=== PATIENT | female | born 2005 | race Caucasian/White ===

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

== ENCOUNTER 2023-12-01 08:38 | Emergency (ER) | payer BC, SELFPAY ==
--- NOTE | ~2023-12-01 | XR_ITS ---
XR chest 1V portable Ordering provider: Dank Kapoor MD History: 18 years Female with . SOB, COUGH, CONGESTION , DX WITH BRONCHITIS YESTERDAY . Comparison: None. FINDINGS: MEDIASTINUM: The cardiac silhouette is not enlarged. LUNGS: No infiltrates, effusions or pneumothorax. OTHER: No free air under the diaphragm. IMPRESSION: No acute cardiopulmonary pathology. Reviewed, dictated and finalized at location A.
[2023-12-01 08:40] VITALS: BP 141/97; PULSE 120; RESP 20; TEMP 36.6; O2SAT 100
[2023-12-01 09:34] LABS: Influenza A QL RT-PCR Negative (Negative); Influenza B QL RT-PCR Negative (Negative); RSV RNA, RT-PCR Negative (Negative); SARS-CoV-2 RNA PCR Negative (Negative)
--- NOTE | 2023-12-01 10:35 | ED.GENADULT ---
HPI - General Adult General Chief complaint: Upper Respiratory Infection Stated complaint: SOB - DX BRONCHITIS YESTERDAY Time Seen by Provider: 12/01/23 08:57 History of Present Illness HPI narrative: 18-year-old female presented to the emergency department for evaluation for persistent cough. Patient was diagnosed with bronchitis yesterday and started on Augmentin, prednisone and albuterol inhaler. Patient states she does smoke and vape. Patient states she has not done either since being diagnosed with bronchitis. Patient reports that she ?hit ?the albuterol inhaler up to 50 times in the last 24 hours. Related Data Allergies Allergy/AdvReac Type Severity Reaction Status Date / Time No Known Allergies Allergy Mild Verified 12/17/21 15:51 Review of Systems Review of Systems: All systems reviewed & are unremarkable except as noted in HPI and below PMFSH Past Medical History Medical History Anxiety and depression Encounter for immunization Fracture, radius, distal Surgical History Surgical History History of dental surgery Family History Family History Mother Anxiety and depression History of ADHD Social History Social History Smoking status: Never smoker Second hand tobacco smoke exposure: No Alcohol intake: never Substance use type: marijuana Gender identity (if verbalized by the patient): Female Exam Narrative: APPEARANCE: Well appearing, no pain, no distress, well-nourished. HEAD: normocephalic, atraumatic. EYES: PERRLA/EOMI, conjunctivae clear. NOSE: Normal no drainage EARS:TMS clear with good light reflex. THROAT: Pharynx clear, no exudate. NECK: Supple. No adenopathy, no masses. RESPIRATORY: Airway patent, respirations nonlabored. Clear to auscultation bilaterally, no rales, rhonchi, wheezing. CARDIOVASCULAR: Regular rate and rhythm without murmurs rubs or gallops. ABDOMINAL: Soft, nontender, nondistended, normal bowel sounds MUSCULOSKELETAL: Moves all extremities. Strength/ROM intact, No edema, No calf tenderness. NEURO: Alert. Cranial nerves II through XII intact. Grossly SKIN: Warm, dry. Normal Color Course Vital Signs Vital signs: Vital Signs Temperature 97.9 F 12/01/23 08:40 Pulse Rate 120 H 12/01/23 08:40 Respiratory Rate 20 12/01/23 08:40 Blood Pressure 141/97 H 12/01/23 08:40 Pulse Oximetry 100 12/01/23 08:40 Oxygen Delivery Room Air 12/01/23 08:40 Temperature 97.9 F 12/01/23 08:40 Pulse Rate 120 H 12/01/23 08:40 Respiratory Rate 20 12/01/23 08:40 Blood Pressure 141/97 H 12/01/23 08:40 Pulse Oximetry 100 12/01/23 08:40 Oxygen Delivery Room Air 12/01/23 08:40 Medical Decision Making MDM Narrative Medical decision making narrative: 18-year-old female presenting to the emergency department for evaluation for persistent cough and congestion. Patient had previously been started on Augmentin and was started on azithromycin emergency department. Patient will be discharged home with additional Azithromycon and patient is being given a refill on her albuterol along with a spacer. Patient was encouraged to continue to refrain from smoking for the pain. Patient was encouraged of close follow-up with primary care physician. Differential Diagnosis Differential Diagnosis: Pneumonia, influenza, RSV, COVID Vital Signs Vital Signs: Vital Signs Temperature 97.9 F 12/01/23 08:40 Pulse Rate 120 H 12/01/23 08:40 Respiratory Rate 12/01/23 08:40 Blood Pressure 141/97 H 12/01/23 08:40 Pulse Oximetry 100 12/01/23 08:40 Oxygen Delivery Room Air 12/01/23 08:40 Temperature 97.9 F 12/01/23 08:40 Pulse Rate 120 H 12/01/23 08:40 Respiratory Rate 12/01/23 08:40 Blood Pressure 141/97 H
[2023-12-01] MEDS: AZITHROMYCIN 250 MG TABLET 500 MG PO (10:50)
== END 2023-12-01 10:57 | disposition home or self-care (01) ==
PROVIDERS: Emergency Provider Emergency Medicine; PCP Family Medicine
DX: J18.9 Pneumonia, unspecified organism (principal); J40 Bronchitis, not specified as acute or chronic; Z20.822 Contact with and (suspected) exposure to COVID-19; F17.290 Nicotine dependence, other tobacco product, uncomplicated
CPT/HCPCS: 71045; 87637; 94664; 99283; A9270

== ENCOUNTER 2024-02-24 16:50 | Emergency (ER) | payer OTHER, SELFPAY ==
--- NOTE | ~2024-02-24 | CT_ITS ---
EXAMINATION: CT abdomen pelvis w con DATE: 02/24/2024 19:43 INDICATION: Right abdominal pain. TECHNIQUE: Computed tomography (CT) of the abdomen and pelvis was performed with 100 mL Omnipaque 350 intravenous contrast. Automated exposure control and iterative reconstruction technique were employe d. The dose-length product was 210.16 mGy-cm. COMPARISON: None. FINDINGS: The visualized portions of the lung bases are clear without pneumonia or pleural effusion. The heart size is normal. No pericardial effusion. The liver, gallbladder, spleen, pancreas, adrenal glands, and kidneys are normal. There are no dilated loops of bowel. The appendix is normal. There is physiologic fluid in the pelvis. There are no pathologically enlarged lymph nodes. There is thoracol umbar levocurvature. IMPRESSION: 1. No etiology for the patient's symptoms. Reviewed, dictated and finalized at location A. NAE SECRETARY
[2024-02-24 17:01] VITALS: BP 125/79; PULSE 101; RESP 18; TEMP 36.3; O2SAT 100
[2024-02-24 18:29] LABS: Basophils Percent Auto 0.2 % (0.2-1.2); Eosinophils Absolute Auto 0.2 K/mm3 (0-0.3); Eosinophils Percent Auto 1.6 % (0-4.4); Hematocrit 35.7 % (37.0-47.0); Hemoglobin 11.7 g/dL (12.0-15.0); Immature Granulocyte Absolute 0.04 K/mm3 (0.00-0.031); Immature Granulocyte Percent A 0.4 % (0-0.5); Lymphocytes Absolute Auto 1.38 K/mm3 (0.9-3.2); Lymphocytes Percent Auto 12.5 % (18.3-44.2); Mean Corpuscular HGB Conc 32.8 g/dl (32-36); Mean Corpuscular Hemoglobin 30.2 pg (26-34); Mean Platelet Volume 9.6 fl (7.4-10.4); Monocytes Absolute Auto 0.6 K/mm3 (0.1-0.6); Monocytes Percent Auto 5.4 % (2.6-8.5); Neutrophils Absolute Auto 8.9 K/mm3 (1.3-6.7); Neutrophils Percent Auto 79.9 % (45.5-73.1); Platelet Count Result 330 k/mm3 (150-375); Red Blood Count 3.88 M/mm3 (4.2-5.4); Red Cell Distribution Width 12.8 % (11.5-14.5); White Blood Count 11.1 K/mm3 (4.5-10.0)
[2024-02-24 18:40] LABS: Add Urine Microscopic? YES; Appearance Urine Clear (Clear); Bacteria Urine None Seen /hpf; Bilirubin Urine Negative (Negative); Blood Urine Negative (Negative); Color Urine Yellow (Yellow); Glucose Urine UA Negative (Negative); Ketones Urine Trace mg/dL (Negative); Leukocyte Esterase Ur Negative LEU/UL (Negative); Nitrate Urine Negative (Negative); Protein Urine 1+ mg/dL (Negative); RBC Urine 0-2 /hpf (0-2); Squamous Epithelial Cell Urine Few /hpf (Few); WBC Urine 0-5 /hpf (0-3); pH Urine 6.5 (5.0-9.0)
[2024-02-24 18:45] LABS: Alanine Aminotransferase 6 U/L (6-35); Albumin Level 4.1 g/dL (3.5-5.1); Alkaline Phosphatase 65 U/L (38-126); Anion Gap 7 mmol/L (4-12); Aspartate Amino Transferase 19 U/L (14-36); Bilirubin,Total 0.4 mg/dL (0.2-1.3); Blood Urea Nitrogen 12 mg/dL (7-17); Carbon Dioxide 27 mmol/L (22-30); Chloride 102 mmol/L (98-107); Estimated CRCL calculation 104 ml/min; Estimated Glomerular Filt Rate > 60; Glucose 86 mg/dL (65-110); Lipase 42 U/L (23-300); Potassium 3.6 mmol/L (3.4-5.0); Sodium 136 mmol/L (137-145)
--- NOTE | 2024-02-24 18:54 | ED_ITS ---
HPI - General Adult General Chief complaint: Abdominal Pain Stated complaint: abdominal pain Time Seen by Provider: 02/24/24 18:11 History of Present Illness HPI narrative: 19-year-old female presenting to the emergency department for evaluation right- sided abdominal pain. Patient reports over last 4 days she has had increased right-sided abdominal pain. Patient has had some associated nausea and vomiting. Patient reports some abdominal cramping her pain with the emesis. Patient denies any falls or injuries. Does not appear to be in significant distress. Related Data Allergies Allergy/AdvReac Type Severity Reaction Status Date / Time No Known Allergies Allergy Mild Verified 02/24/24 16:51 Review of Systems 2 Review of Systems: All systems reviewed & are unremarkable except as noted in HPI and below PMFSH Past Medical History Medical History Anxiety and depression Encounter for immunization Fracture, radius, distal Surgical History Surgical History History of dental surgery Family History Family History Mother Anxiety and depression History of ADHD Social History Social History Smoking status: Never smoker Second hand tobacco smoke exposure: No Alcohol intake: never Substance use type: marijuana Gender identity (if verbalized by the patient): Female Exam 2 Narrative: APPEARANCE: Well appearing, no pain, no distress, well-nourished. HEAD: normocephalic, atraumatic. EYES: PERRLA/EOMI, conjunctivae clear. NOSE: Normal no drainage EARS:TMS clear with good light reflex. THROAT: Pharynx clear, no exudate. NECK: Supple. No adenopathy, no masses. RESPIRATORY: Airway patent, respirations nonlabored. Clear to auscultation bilaterally, no rales, rhonchi, wheezing. CARDIOVASCULAR: Regular rate and rhythm without murmurs rubs or gallops. ABDOMINAL: Soft, nontender, nondistended, normal bowel sounds MUSCULOSKELETAL: Moves all extremities. Strength/ROM intact, No edema, No calf tenderness. NEURO: Alert. Cranial nerves II through XII intact. Good gait. Good coordination SKIN: Warm, dry. Normal Color Course Vital Signs Vital signs: Vital Signs Temperature 97.4 F L 02/24/24 17:01 Pulse Rate 101 H 02/24/24 17:01 Respiratory Rate 18 02/24/24 17:01 Blood Pressure 125/79 02/24/24 17:01 Pulse Oximetry 100 02/24/24 17:01 Oxygen Delivery Room Air 02/24/24 17:01 Temperature 97.4 F L 02/24/24 17:01 Pulse Rate 88 02/24/24 19:13 Respiratory Rate 18 02/24/24 19:13 Blood Pressure 129/81 02/24/24 19:13 Pulse Oximetry 100 02/24/24 19:13 Oxygen Delivery Room Air 02/24/24 17:01 Medical Decision Making MDM Narrative Medical decision making narrative: 19-year-old female presents to the emergency department for evaluation for right-sided abdominal pain. Patient is afebrile but does have a leukocytosis of 11.1 and hemoglobin 11.7, patient has no acute abnormalities on her CMP UA was negative for infection. CT abdomen pelvis showed no acute abnormalities with a normal gallbladder and normal appendix. Differential Diagnosis Differential Diagnosis: Colitis, diverticulitis, cholecystitis, appendicitis, cystitis Vital Signs Vital Signs: Vital Signs Temperature 97.4 F L 02/24/24 17:01 Pulse Rate 101 H 02/24/24 17:01 Respiratory Rate 18 02/24/24 17:01 Blood Pressure 125/79 02/24/24 17:01 Pulse Oximetry 100 02/24/24 17:01 Oxygen Delivery Room Air 02/24/24 17:01 Temperature 97.4 F L 02/24/24 17:01 Pulse Rate 88 02/24/24 19:13 Respiratory Rate 18 02/24/24 19:13 Blood Pressure 129/81 02/24/24 19:13 Pulse Oximetry 100 02/24/24 19:13 Oxygen Delivery Room Air 02/24/24 17:01 Lab Data Lab results reviewed: Yes I reviewed the patient's lab results. 02/24/24 18:23 02/24/24 18:23 Labs: Lab Results 02/24/24 Range/Units 18:23 WBC 11.1 H (4.5-10.0) K/mm3 RBC 3.88 L (4.2-5.4) M/mm3 Hgb 11.7 L (12.0-15.0) g/dL Hct 35.7 L (37.0-47.0) % MCV 92.0 (80-100) fl MCH 30.2 (26-34) pg MCHC 32.8 (32-36) g/dl RDW 12.8 (11.5-14.5) % Plt Count 330 (150-375) k/mm3 MPV 9.6 (7.4-10.4) fl Immature Gran % (Auto) 0.4 (0-0.5) % Neut % (Auto) 79.9 H (45.5-73.1) % Lymph % (Auto) 12.5 L (18.3-44.2) % Larue % (Auto) 5.4 (2.6-8.5) % Eos % (Auto) 1.6 (0-4.4) % Baso % (Auto) 0.2 (0.2-1.2) % Lymph # (Auto) 1.38 (0.9-3.2) K/mm3 Larue # (Auto) 0.6 (0.1-0.6) K/mm3 Eos # (Auto) 0.2 (0-0.3) K/mm3 Baso # (Auto) 0.0 (0.0-0.1) K/mm3 Abs Immat Gran (auto) 0.04 H (0.00-0.031) K/mm3 Absolute Neuts (auto) 8.9 H (1.3-6.7) K/mm3 Absolute Nucleated RBC 0.000 (0.0-0.012) K/mm3 Nucleated RBC % 0.0 (0.0-0.2) % Sodium 136 L (137-145) mmol/L Potassium 3.6 (3.4-5.0) mmol/L Chloride 102 (98-107) mmol/L Carbon Dioxide 27 (22-30) mmol/L Anion Gap 7 (4-12) mmol/L BUN 12 (7-17) mg/dL Creatinine 0.60 L (0.7-1.0) mg/dL Estim Creat Clear Calc 104 ml/min Estimated GFR > 60 (59 - ) Glucose 86 (65-110) mg/dL Calcium 9.0 (8.4-10.2) mg/dL Total Bilirubin 0.4 (0.2-1.3) mg/dL AST 19 (14-36) U/L ALT 6 (6-35) U/L Alkaline Phosphatase 65 (38-126) U/L Total Protein 8.0 (6.3-8.2) g/dL Albumin 4.1 (3.5-5.1) g/dL Lipase 42 (23-300) U/L Urine Color Yellow (Yellow) Urine Appearance Clear (Clear) Urine pH 6.5 (5.0-9.0) Ur Specific [place] 1.020 (1.001-1.035) Urine Protein 1+ H (Negative) mg/dL Urine Glucose (UA) Negative (Negative) mg/dL Urine Ketones Trace H (Negative) mg/dL Ur Blood (Man) Negative (Negative) Urine Nitrate Negative (Negative) Urine Bilirubin Negative (Negative) Urine Urobilinogen 1.0 (<2.0) mg/dL Leukocyte Esterase Rfl Negative (Negative) LOVE/UL Urine RBC 0-2 (0-2) /hpf Urine WBC 0-5 (0-3) /hpf Ur Squamous Epith Cells Few (Few) /hpf Urine Bacteria None seen /hpf Urine Casts 3-5 Urine Test Negative Imaging Data Radiologist's impression: Impressions Abdomen/Pelvis CT 02/24/24 20:04 IMPRESSION: 1. No etiology for the patient's symptoms. Discharge Plan Discharge Clinical Impression: Abdominal pain Patient Disposition: Home, Self-Care Condition: Stable Instructions: Antibiotic Form, Abdominal Pain (ED) Additional Instructions: Tylenol and ibuprofen for pain control. Omeprazole as directed for the next 14 days. Have close follow-up with primary care physician. Have close follow-up with GI. If you have any worsening symptoms then please call or return to the emergency department Patient Language: Maldivian Prescriptions: New omeprazole 20 mg capsule,delayed release(DR/EC) 20 mg PO DAILY Qty: 14 0RF No Action amoxicillin 500 mg capsule 500 mg PO Q12H Qty: 14 0RF loratadine [Claritin] 10 mg tablet 10 mg PO DAILY PRN (Reason: allergic symptoms) Qty: 30 0RF azithromycin 250 mg tablet See Rx Instructions .ROUTE .COMPLEX Qty: 6 0RF Rx Instructions: For 250 mg dose pack: take 500 mg today (day 1), then 250 mg for 4 days (days 2-5) albuterol sulfate 90 mcg/actuation HFA aerosol inhaler 1 inh inhalation QID PRN (Reason: shortness of breath or wheezing) Qty: 6.7 0RF Follow-up/Referrals: Merlene Flores MD [Primary Care Provider] - Roger Hill MD [Physician] -
[2024-02-24 19:04] LABS: Pregnancy On Board Control Positive; Urine Pregnancy Test Negative
[2024-02-24] MEDS: SODIUM CHLORIDE 0.9% IV 1,000 ML 999 ML IV CONT (19:04)
[2024-02-24 19:13] VITALS: BP 129/81; PULSE 88; RESP 18; O2SAT 100
== END 2024-02-24 21:17 | disposition home or self-care (01) ==
PROVIDERS: Emergency Provider Emergency Medicine; PCP Family Medicine
DX: R10.9 Unspecified abdominal pain (principal)
CPT/HCPCS: 36415; 74177; 80053; 81001; 81025; 83690; 85025; 96360; 99283; 99284; J7030; Q9967